=== PATIENT | female | born 1965 | race Asian ===

== ENCOUNTER 2016-07-31 19:04 | Emergency (ER) | payer OTHER ==
[2016-07-31 19:15] VITALS: BP 116/73; PULSE 90; TEMP 98.1; BMI 29.2
--- NOTE | 2016-07-31 19:29 | PDOC ---
History of Present Illness - General History Source: Patient Exam Limitations: No Limitations - History of Present Illness Initial Comments: 07/31/16 19:29 The patient is a 51 year old female presenting with her , with a significant past medical history of diabetes, who presents to the emergency department with headache, lightheadedness, blurry vision and nausea onset today. She states that she was seeing an orthopedic today regarding her right knee, for which she has been having pain for the last 3 months. Upon being checked by the physician her symptoms began. She describes her headache as ranging from mild to moderate, without radiation or modifying factors. She reports a subjective fever for the last couple of days. She states that her glucose levels usually run high, roughly 190. She notes that the last time she ate was this afternoon. She denies any recent travel. The patient denies chest pain and shortness of breath. Denies abdominal pain, chills, vomit, diarrhea and constipation. Denies dysuria, frequency, urgency and hematuria. Allergies: Penicillin Past surgical history: Skin Graft Social history: No alcohol, tobacco or drug use reported <Raz Clayton - Last Filed: 07/31/16 20:29> <Amanda Morris - Last Filed: 08/01/16 00:29> - General Chief Complaint: Lightheaded Stated Complaint: DIZZY Time Seen by Provider: 07/31/16 19:15 Past History <Raz Clayton - Last Filed: 07/31/16 20:29> - Past Medical History Anemia: Yes Asthma: No Cancer: No Cardiac Disorders: No CVA: No COPD: No CHF: No Dementia: No Diabetes: Yes GI Disorders: No Disorders: Yes (FREQUENCY) HTN: No Hypercholesterolemia: No Liver Disease: Yes (FATTY liver) Seizures: No Thyroid Disease: No Other medical history: RT KNEE PAIN - Surgical History Abdominal Surgery: No Appendectomy: No Cardiac Surgery: No Cholecystectomy: No Lung Surgery: No Neurologic Surgery: No Orthopedic Surgery: No - Reproductive History (#): 6 Para: 6 Cervical CA: No Dysfunctional Uterine Bleeding: No Ectopic : No Endometrial CA: No Polycystic Ovaries: No Tubal Ligation: No - Psycho/Social/Smoking Cessation Hx Anxiety: No Suicidal Ideation: No Smoking History: Never smoked Have you smoked in the past 12 months: No Hx Alcohol Use: No Drug/Substance Use Hx: No Substance Use Type: None Hx Substance Use Treatment: No <Amanda Morris - Last Filed: 08/01/16 00:29> - Past Medical History Allergies/Adverse Reactions: Allergies Allergy/AdvReac Type Severity Reaction Status Date / Time Penicillins Allergy Mild Verified 04/23/15 11:20 Home Medications: Ambulatory Orders Metformin HCl [Metformin HCl ER] 1,000 mg PO BID 12/20/14 Meclizine HCl [Antivert -] 25 mg PO TID PRN #20 tablet 07/31/16 Polyethylene Glycol 3350 [Miralax (For Bowel Prep) -] 17 gm PO DAILY #1 bottle 07/31/16 Review of Systems - Review of Systems Able to Perform ROS?: Yes Comments:: 07/31/16 19:29 GENERAL/CONSTITUTIONAL: +Fever. No chills. No weakness. HEAD, EYES, EARS, NOSE AND THROAT: +Blurry vision. No ear pain or discharge. No sore throat. CARDIOVASCULAR: No chest pain or shortness of breath RESPIRATORY: No cough, wheezing, or hemoptysis. GASTROINTESTINAL: +Nausea. No vomiting, diarrhea or constipation. GENITOURINARY: No dysuria, frequency, or change in urination. MUSCULOSKELETAL: No joint or muscle swelling or pain. No neck or back pain. SKIN: No rash NEUROLOGIC: +Headache and dizziness. No loss of consciousness, or change in strength/sensation. ENDOCRINE: No increased thirst. No abnormal weight change HEMATOLOGIC/LYMPHATIC: No anemia, easy bleeding, or history of blood clots. ALLERGIC/IMMUNOLOGIC: No hives or skin allergy. <Raz Clayton - Last Filed: 07/31/16 20:29> *Physical Exam - Vital Signs Last Vital Signs Temp Pulse Resp BP Pulse Ox 98.1 F 90 20 116/73 100 07/31/16 19:13 07/31/16 19:13 07/31/16 19:13 07/31/16 19:13 07/31/16 19:13 - Physical Exam Comments: 07/31/16 19:29 GENERAL: The patient is awake, alert, and fully oriented, in no acute distress. HEAD: Normal with no signs of trauma. EYES: Pupils equal, round and reactive to light, extraocular movements intact, sclera anicteric, conjunctiva clear with no pallor. ENT: Ears normal, nares patent, oropharynx clear without exudates. Dry mucous membranes. NECK: Normal range of motion, supple without lymphadenopathy, JVD, or masses. Tenderness of the bilateral paraspinal muscles of the neck, right greater than left. LUNGS: Breath sounds equal, clear to auscultation bilaterally. No wheeze/ crackles. HEART: Regular rate and rhythm, normal S1 and S2 without murmur or rub. ABDOMEN: Soft/nontender/nondistended. BS wnl. No guarding or rebound. No palpable masses. No hepatosplenomegaly. EXTREMITIES: Normal range of motion, no edema. No clubbing or cyanosis. No cords , erythema, or tenderness. NEUROLOGICAL: Cranial nerves II through XII grossly intact. Normal speech, normal gait. No pronator drift and moving all 4 extremities equally. PSYCH: Normal mood, normal affect. SKIN: Warm, Dry, normal turgor, no rashes or lesions noted. <Raz Clayton - Last Filed: 07/31/16 20:29> - Vital Signs Last Vital Signs Temp Pulse Resp BP Pulse Ox 98.1 F 90 20 116/73 100 07/31/16 19:13 07/31/16 19:13 07/31/16 19:13 07/31/16 19:13 07/31/16 19:13 <Amanda Morris - Last Filed: 08/01/16 00:29> ED Treatment Course - LABORATORY CBC & Chemistry Diagram: 07/31/16 20:05 07/31/16 20:05 <Raz Clayton - Last Filed: 07/31/16 20:29> - LABORATORY CBC & Chemistry Diagram: 07/31/16 20:05 07/31/16 20:05 <Amanda Morris - Last Filed: 08/01/16 00:29> Medical Decision Making - Medical Decision Making Documentation has been prepared under my direction and personally reviewed by me in its entirety. I attest that this documented accurately reflects all work, treatment, procedures and medical decision making performed by me. As noted above, this 51-year-old woman with a history of hypertension/type 2 diabetes presents with a history of lightheadedness/head spinning sensation that began while she was awaiting orthopedic evaluation. Patient was referred here; on presentation she is awake and alert with persistent lightheadedness. Of note, the patient has had a few day history of subjective fever/body aches/ upper respiratory symptoms. She also has mild nausea currently. No history of vertigo or labyrinthitis. She has not had any vomiting/diarrhea or other fluid losses. Exam, as noted above. There is no evidence of acute focal neurologic deficit. She appears somewhat clinically dehydrated. CBC and chemistry profile as well as cardiac enzymes evaluated Zofran 4 mg IV given. 1 L normal saline administered intravenously. Toradol 30 mg IV given for patient's headache and body aches. Laboratory values are as essentially normal with no elevation of white blood cell count; her random glucose is normal at 118; no other significant abnormalities of electrolytes are seen. Cardiac enzymes are not elevated Patient is feeling somewhat better after IV fluids and IV Toradol however still has some spinning sensation, which was particularly bothersome when she went to the bathroom to provide a urine sample. Patient given meclizine 50 mg by mouth. Patient reports resolution of her head spinning sensation. She feels no further nausea either. In retrospect, the patient states that she has been having intermittent lightheadedness/vertigo for the last 4 days during the time of her recent febrile illness. Patient will be discharged with prescription for meclizine 25 mg up to 3 times a day as needed for vertigo. She also asked for medication for occasional constipation and will be given a prescription for MiraLAX 17 g daily. Patient has been advised to follow-up with her doctor within the next 5-7 days. She should return to the emergency room if she has severe vertigo or develops persistent nausea/vomiting. <Amanda Morris - Last Filed: 08/01/16 00:29> *DC/Admit/Observation/Transfer - Attestations Scribe Attestion: 07/31/16 19:29 Documentation prepared by Raz Clayton, acting as medical pathologist for Amanda Morris MD. <Raz Clayton - Last Filed: 07/31/16 20:29> <Amanda Morris - Last Filed: 08/01/16 00:29> Diagnosis at time of Disposition: Labyrinthitis Qualifiers: Laterality: unspecified laterality Qualified Code(s): H83.09 - Labyrinthitis, unspecified ear - Discharge Dispostion Disposition: HOME Condition at time of disposition: Stable - Prescriptions Prescriptions: Meclizine HCl [Antivert -] 25 mg PO TID PRN #20 tablet PRN Reason: Vertigo Polyethylene Glycol 3350 [Miralax (For Bowel Prep) -] 17 gm PO DAILY #1 bottle - Referrals Referrals: STAFF,NOT ON [Primary Care Provider] - - Patient Instructions Printed Discharge Instructions: DI for Vertigo Additional Instructions: rest, drink plenty of fluids Meclizine 25mg up to 3 times a day for spinning sensation Miralax one capful daily take all your other medications as prescribed return to ER if you have severe dizziness or pain followup with your doctor within 5 days
[2016-07-31] MEDS ORDERED: SODIUM CHLORIDE 1,000 ML IV STA (19:42)
[2016-07-31] MEDS ORDERED: ONDANSETRON 4 MG/2 ML VIAL IVPUSH ONE (19:43)
[2016-07-31] MEDS ORDERED: ONDANSETRON 4 MG/2 ML VIAL ONE (20:16)
[2016-07-31 20:20] LABS: BASOPHIL 0.2 % (0-2.0); MCH 25.6 pg (25.7-33.7); MEAN PLT VOLUME 9.9 fl (7.5-11.1); NEUTROPHILS 67.5 % (42.8-82.8); PLATELET COUNT 247 K/MM3 (134-434); RDW 13.1 % (11.6-15.6); WHITE BLOOD COUNT 8.6 K/mm3 (4.0-10.0)
[2016-07-31 20:35] LABS: ALBUMIN 3.7 g/dl (3.5-5.0); ALK PHOS 94 U/L (32-92); ANION GAP 9 (8-16); CALCIUM 9.1 mg/dl (8.4-10.2); CO2 27 mmol/L (22-28); CPK(DFH) 48 IU/L (26-140); CREATININE 0.7 mg/dl (0.6-1.3); GLUCOSE,RANDOM 118 mg/dl (74-106); SGOT/AST 19 U/L (10-42); SGPT/ALT 19 U/L (10-40); TOT PROT 7.2 g/dl (6.4-8.3)
[2016-07-31 20:50] LABS: BILIRUBIN,TOTAL < 0.3 mg/dl (0.2-1.0)
[2016-07-31 20:51] LABS: TROPONIN I (DFP) < 0.03 ng/ml (0.03-0.50)
[2016-07-31] MEDS ORDERED: KETOROLAC TROMETHAMINE 30 MG/1 ML VIAL IVPUSH ONE (20:59)
[2016-07-31] MEDS ORDERED: KETOROLAC TROMETHAMINE 30 MG/1 ML VIAL ONE (21:01)
[2016-07-31] MEDS ORDERED: MECLIZINE HCL 25 MG TABLET (FP) PO ONE (21:37)
[2016-07-31] MEDS ORDERED: MECLIZINE HCL 25 MG TABLET (FP) ONE (21:49)
[2016-07-31 23:01] LABS: PH,URINE 5.5 (4.5-8); URINE APPEARANCE Clear; URINE BILIRUBIN Negative (NEGATIVE); URINE BLOOD Negative (NEGATIVE); URINE GLUCOSE (UA) Negative (NEGATIVE); URINE KETONE Negative (NEGATIVE); URINE LEUK ESTERASE Negative (NEGATIVE); URINE NITRITE Negative (NEGATIVE); URINE PROTEIN Negative (NEGATIVE); URINE UROBILINOGEN 0.2 E.U/dl (0.2-1.0)
[2016-07-31 23:04] LABS: URINE COLOR YELLOW
== END 2016-07-31 23:10 | disposition home or self-care (01) ==
LOC: FER 19:04
PROC: 3E0333Z Introduction of Anti-inflammatory into Peripheral Vein, Percutaneous Approach (ICD-10-PCS; principal; 2016-07-31)
PROC: 3E033GC Introduction of Other Therapeutic Substance into Peripheral Vein, Percutaneous Approach (ICD-10-PCS; 2016-07-31)
PROC: 3E0337Z Introduction of Electrolytic and Water Balance Substance into Peripheral Vein, Percutaneous Approach (ICD-10-PCS; 2016-07-31)
DX: H83.09 Labyrinthitis, unspecified ear (principal); E11.9 Type 2 diabetes mellitus without complications; K76.0 Fatty (change of) liver, not elsewhere classified; M25.561 Pain in right knee; R35.0 Frequency of micturition; D64.9 Anemia, unspecified
CPT/HCPCS: 36415; 80053; 81003; 82550; 84484; 85025; 99283-25

== ENCOUNTER 2018-12-19 12:32 | Emergency (ER) | payer OTHER ==
[2018-12-19 12:38] VITALS: TEMP 97.5; BMI 32.2
[2018-12-19] MEDS ORDERED: MAG HYDROX/AL HYDROX/SIMETH 30 ML UNIT-DOSE CUP PO ONE (13:36)
[2018-12-19] MEDS ORDERED: LIDOCAINE VISCOUS 2% ORAL/TOP 20 ML UNIT-DOSE CUP MM ONE (13:36)
--- NOTE | 2018-12-19 13:40 | PDOC ---
History of Present Illness - General Chief Complaint: Pain Stated Complaint: NECK PAIN Time Seen by Provider: 12/19/18 13:04 History Source: Patient, Family (daughter) Exam Limitations: Language Barrier (speaks some [place], prefers [place]) - History of Present Illness Initial Comments: 53 yo F PMH GERD, arthritis, p/w R sided throat burning and itching. Began initially a week ago; patient had some mist medication from her ENT that she used, and this sensation resolved after 3 days. Last night, the sensation came back, except more intense. The spray was tried at that time and this morning, and did not help. Patient also endorses some L middle abdominal pain last night "felt like something was stuck", but this is no longer present. Also says that she has had some issues with intermittent L sided nasal hemianopsia. Had an MRI today, which was normal. Also says she has had some intermittent sharp L sided chest pain, which she has been told could be due to fibromyalgia. ROS Chronic constipation Feels weak Denies CP, SOB, N/V, diarrhea, fevers/chills, PUGA. 12/19/18 13:32 Past History - Past Medical History Allergies/Adverse Reactions: Allergies Allergy/AdvReac Type Severity Reaction Status Date / Time Penicillins Allergy Mild Verified 12/19/18 12:38 Home Medications: Ambulatory Orders metFORMIN HCL [Metformin ER Osmotic] 500 mg PO BID 12/20/14 Calcium Carbonate/Simethicone [Maalox Advanced Tab Chew] 1 each PO BID PRN #14 tab.chew 12/19/18 Omeprazole 20 mg PO BID 12/19/18 Ranitidine HCl [Zantac] 150 mg PO DAILY #14 tablet 12/19/18 Anemia: Yes Asthma: No Cancer: No Cardiac Disorders: No CVA: No COPD: No CHF: No Dementia: No Diabetes: Yes GI Disorders: No Disorders: Yes (FREQUENCY) HTN: No Hypercholesterolemia: No Liver Disease: Yes (FATTY liver) Seizures: No Thyroid Disease: No - Surgical History Abdominal Surgery: No Appendectomy: No Cardiac Surgery: No Cholecystectomy: No Lung Surgery: No Neurologic Surgery: No Orthopedic Surgery: No - Reproductive History (#): 6 Para: 6 Cervical CA: No Dysfunctional Uterine Bleeding: No Ectopic : No Endometrial CA: No Polycystic Ovaries: No Tubal Ligation: No - Suicide/Smoking/Psychosocial Hx Smoking History: Never smoked Have you smoked in the past 12 months: No Hx Alcohol Use: No Drug/Substance Use Hx: No Substance Use Type: None Hx Substance Use Treatment: No Review of Systems - Review of Systems Constitutional: Yes: Weakness. No: Chills, Fever HEENTM: Yes: Recent change in vision (L nasal hemianopsia, intermittent. MRI today negative), Throat Pain (R sided, burning, itching). No: Eye Pain Respiratory: No: Shortness of Breath, Stridor, Wheezing Cardiac (ROS): No: Chest Pain, Lightheadedness, Syncope ABD/GI: Yes: Constipated (chronic). No: Diarrhea Neurological: No: Headache, Numbness, Tingling, Weakness *Physical Exam - Vital Signs Last Vital Signs Temp Pulse Resp BP Pulse Ox 97.5 F L 75 18 106/64 100 12/19/18 12:35 12/19/18 12:35 12/19/18 12:35 12/19/18 12:35 12/19/18 12:35 - Physical Exam General Appearance: Yes: Nourished, Appropriately Dressed HEENT: positive: EOMI, JULIETH, Normal ENT Inspection, Normal Voice, Symmetrical, TMs Normal, Pharynx Normal, Hearing Grossly Normal. negative: Pharyngeal Erythema, Tonsillar Erythema, Nasal Congestion Neck: positive: Trachea midline, Normal Thyroid, Supple, Lymphadenopathy (R) ( minor cervical, slightly tender). negative: Stridor Respiratory/Chest: positive: Lungs Clear, Normal Breath Sounds. negative: Respiratory Distress, Accessory Muscle Use Cardiovascular: positive: Regular Rhythm, Regular Rate Gastrointestinal/Abdominal: positive: Normal Bowel Sounds, Soft. negative: Tender Musculoskeletal: positive: Normal Inspection. 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 Will get Xray soft tissues to r/o retropharyngeal abscess, give Pepcid for symptom management. CBC CMP CXR PA L for workup. Give oral lidocaine and Mylanta for symptom management. 12/19/18 14:07 Patient feeling better. Stated that her daughter is leaving the country tonight at around 1830, so she absolutely has to be out of the hospital by 1800. Will continue workup and follow up imaging. Explained to patient the risks of signing out against medical advice, including increased throat pain, disability , and , and she said that she would sign out AMA if it becomes to late. She is awake, alert, oriented, and competent to make this decision. 12/19/18 15:09 Patient reassessed, continues to be pain free. 12/19/18 15:50 CXR and Xray soft tissues reviewed. Showed moderate cardiomegaly with bibasilar atelectasis, but no abscess or bony abnormalities. Plan to d/c home with outpatient follow-up. 12/19/18 16:35 *DC/Admit/Observation/Transfer Diagnosis at time of Disposition: GERD (gastroesophageal reflux disease) Qualifiers: Esophagitis presence: esophagitis presence not specified Qualified Code(s): K21.9 - Gastro-esophageal reflux disease without esophagitis - Discharge Dispostion Disposition: HOME Condition at time of disposition: Improved Decision to Admit order: No - Prescriptions Prescriptions: Calcium Carbonate/Simethicone [Maalox Advanced Tab Chew] 1 each PO BID PRN #14 tab.chew PRN Reason: Pain Ranitidine HCl [Zantac] 150 mg PO DAILY #14 tablet - Referrals Referrals: Wm Dorsey MD [Primary Care Provider] - Diamante Cronin MD [Staff Physician] - - Patient Instructions Printed Discharge Instructions: DI for Gastroesophageal Reflux Disease (GERD) Additional Instructions: Take your Zantac 150mg daily for the next two weeks. Take your Maalox as needed. Please follow up with Dr. Cronin in 3 days to get an outpatient scope. Please follow up with your ENT and primary care doctors. You were found to have a moderately enlarged heart, please ensure that your primary care physician has this followed up. Return to the ED if you develop worsening throat pain, fevers and chills, or vomiting. - Post Discharge Activity
[2018-12-19] MEDS ORDERED: FAMOTIDINE 20 MG/50 ML IVPB 20 MG/50 ML MG IVPB ONE (14:08)
[2018-12-19] MEDS ORDERED: FAMOTIDINE 20 MG/50 ML IVPB 0 MG/0 ML MG IVPB ONE (14:15)
[2018-12-19] MEDS ORDERED: MAG HYDROX/AL HYDROX/SIMETH 30 ML UNIT-DOSE CUP ONE (14:15)
[2018-12-19] MEDS ORDERED: RANITIDINE HCL 150 MG TABLET (FP) PO ONE (14:25)
[2018-12-19] MEDS ORDERED: RANITIDINE HCL 150 MG TABLET (FP) ONE (14:29)
[2018-12-19] MEDS ORDERED: ALPRAZolam 0.25 MG TABLET PO ONE (14:40)
[2018-12-19] MEDS ORDERED: ALPRAZolam 0.25 MG TABLET ONE (14:47)
--- NOTE | 2018-12-19 15:01 | PDOC ---
Documentation entered by Carmelita Cardenas SCRIBE, acting as scribe for Imelda Duff DO. Imelda Duff DO: This documentation has been prepared by the Ronald perez Nirvannie, SCRIBE, under my direction and personally reviewed by me in its entirety. I confirm that the documentation accurately reflects all work, treatment, procedures, and medical decision making performed by me. Attending Attestation - Resident Resident Name: MascorroLauren little - ED Attending Attestation I have performed the following: I have examined & evaluated the patient, The case was reviewed & discussed with the resident, I agree w/resident's findings & plan - HPI HPI: 12/19/18 13:42 The patient is a 53 year old female, with a significant past medical history of GERD and DM, who presents to the emergency department with, 2 days of shortness of breath and neck pain. As per patient, she saw her ENT in [place] earlier this week at which time she was placed on Azithromycin for her GERD. She notes her medications finished 2 days ago onsetting her shortness or breath and neck pain with associated burning sensation in her esophagus and sour taste in the back of her mouth. She denies recent fevers, chills, headache or dizziness. She denies recent diarrhea or constipation. She denies recent dysuria, frequency, urgency or hematuria. She denies recent chest pain or palpitations. Allergies: Penicillin Past surgical history: Skin Graft Social history: Nonsmoker. Denies EtOH use and recreational drug use. Primary Care Physician: Dr. Dorsey - Physicial Exam PE: 12/19/18 13:42 Constitutional: Awake, alert, oriented. No acute distress. Head: Normocephalic. Atraumatic Eyes: PERRL. EOMI. Conjunctivae are not pale. ENT: Submandibular soft. Mucous membranes are moist and intact. Posterior pharynx without exudates or erythema. Uvula midline. Neck: Supple. Full ROM. No lymphadenopathy. Cardiovascular: Regular rate. Regular rhythm. S1, S2 regular. Distal pulses are 2+ and symmetric. Pulmonary/Chest: No evidence of respiratory distress. Clear to auscultation bilaterally No wheezing, rales or rhonchi. Abdominal: Soft and non-distended. There is no tenderness. No rebound, guarding or rigidity. No organomegaly. No palpable masses. Good bowel sounds. Back: No CVA tenderness. Musculoskeletal: No edema. No cyanosis. No clubbing. Full range of motion in all extremities. No calf tenderness. Radial/pedal pulses are intact and 2+ bilaterally Skin: Skin is warm and dry. No petechiae. No purpura. Neurological: Alert and oriented to person, place, and time. Cranial nerves II -XII are grossly intact. Normal speech. Strength is grossly symmetric. No sensory deficits. Psychiatric: Good eye contact. Normal interaction, affect and behavior. - Medical Decision Making 12/19/18 14:42 a/p: 53yo female with sore throat and R neck pain -pt saw ent and was treated with azithromycin this week for "redness" -pt states finished the azithromycin on thursday and since finishing has had worsening pain to the R neck -pt speaking in full sentences -pt without stridor or wheezing -swallowing without difficulty -pt appears anxious -post pharynx clear -will obtain xray soft tissue neck and cxr -hx of gerd and ent told her she has gerd -will treat with oral meds and reassess 12/19/18 16:33 cxr shows mild cardiomegaly neck xray shows djd to c5-6, stable for dc to home ent and gi follow up no retropharyngeal abscess feels better after gi meds Heart Score/ECG Review - ECG Intrepretation Comment:: 12/19/18 15:01 sinus at 61, nl axis, nl interval, no acute st/t wave findings
[2018-12-19 17:01] VITALS: BP 110/72; PULSE 67
--- NOTE | 2018-12-20 11:25 | EKG ---
Test Reason : Blood Pressure : / mmHG Vent. Rate : 061 BPM Atrial Rate : 061 BPM P-R Int : 142 ms QRS Dur : 074 ms QT Int : 422 ms P-R-T Axes : 043 009 025 degrees QTc Int : 424 ms NORMAL SINUS RHYTHM CANNOT RULE OUT ANTERIOR INFARCT , AGE UNDETERMINED ABNORMAL ECG WHEN COMPARED WITH ECG OF 19-DEC-2014 13:54, NO SIGNIFICANT CHANGE WAS FOUND Confirmed by JESSICA DOBBS MD ([id number]) on 12/20/2018 11:25:03 AM Referred By: Confirmed By:JESSICA DOBBS MD
== END 2018-12-19 17:01 | disposition home or self-care (01) ==
LOC: JER 12:32
DX: K21.9 Gastro-esophageal reflux disease without esophagitis (principal); K76.0 Fatty (change of) liver, not elsewhere classified
CPT/HCPCS: 70360-TC-FY; 71046-TC-FY; 93005; 93010; 99282-25

== ENCOUNTER 2020-12-07 10:05 | Day surgery (SDC) | payer OTHER ==
[2020-12-03 16:06] VITALS: BMI 31.0
[2020-12-07] MEDS ORDERED: BUPIVACAINE HCL/PF 0.25% (2.5MG/ML) 10 ML VIAL ONE ×2 (10:30→11:06)
[2020-12-07] MEDS ORDERED: MIDAZOLAM HCL 2 MG/2 ML SINGLE DOSE VIAL ONE (11:40)
[2020-12-07] MEDS ORDERED: DESFLURANE GAS 240 ML BOTTLE IH ONE (12:31)
[2020-12-07] MEDS ORDERED: oxyCODONE HCL 5 MG TABLET PO PRN ×2 (12:55)
[2020-12-07] MEDS ORDERED: PROMETHAZINE HCL 25 MG/1 ML VIAL IVPB PRN (12:55)
[2020-12-07] MEDS ORDERED: ONDANSETRON 4 MG/2 ML VIAL IVPUSH PRN (12:55)
[2020-12-07 13:23] VITALS: TEMP 97.5
[2020-12-07 15:53] VITALS: BP 131/78; PULSE 80
== END 2020-12-07 15:50 | disposition home or self-care (01) ==
LOC: FASU 10:05
PROVIDERS: ATTEND Orthopaedic Surgery Sports Medicine
PROC: 0SBC4ZZ Excision of Right Knee Joint, Percutaneous Endoscopic Approach (ICD-10-PCS; 2020-12-07)
PROC: 0SQC4ZZ Repair Right Knee Joint, Percutaneous Endoscopic Approach (ICD-10-PCS; 2020-12-07)
PROC: 0SBC4ZZ Excision of Right Knee Joint, Percutaneous Endoscopic Approach (ICD-10-PCS; principal; 2020-12-07 12:13)
PROC: 0SBC4ZZ Excision of Right Knee Joint, Percutaneous Endoscopic Approach (ICD-10-PCS; 2020-12-07 12:13)
DX: S83.241A Other tear of medial meniscus, current injury, right knee, initial encounter (principal); S83.281A Other tear of lateral meniscus, current injury, right knee, initial encounter; M22.41 Chondromalacia patellae, right knee; M65.9 Synovitis and tenosynovitis, unspecified; X58.XXXA Exposure to other specified factors, initial encounter; Y93.9 Activity, unspecified; Y92.9 Unspecified place or not applicable
CPT/HCPCS: 29880; G0289; 82962; 88304-TC; 94760

== ENCOUNTER 2021-08-26 08:09 | Inpatient (IN) | payer OTHER ==
[2021-08-22 15:36] VITALS: BMI 31.0
[~2021-08-26 08:09] MED LIST: BUPIVICAINE 0.25%/MORPH PF/KETOROLAC - 51ML DISP.SYRINGE IA ONE; VANCOMYCIN 1,000 MG VIAL (RESTRICTED TO ID ONLY) IVPB ONE
[2021-08-26] MEDS ORDERED: MIDAZOLAM HCL 2 MG/2 ML SINGLE DOSE VIAL ONE ×3 (08:30→12:54)
[2021-08-26] MEDS ORDERED: BUPIVACAINE LIPOSOME/PF (EXPAREL) 266 MG/20 ML VIAL ONE (08:30)
[2021-08-26] MEDS ORDERED: SODIUM CHLORIDE 0.9% P/F 10 ML VIAL IJ ONE (08:30)
[2021-08-26] MEDS ORDERED: BUPIVACAINE HCL 50 ML ONE ×2 (08:30→10:19)
[2021-08-26] MEDS ORDERED: VANCOMYCIN 1,000 MG VIAL (RESTRICTED TO ID ONLY) ONE ×2 (10:27→11:22)
[2021-08-26] MEDS ORDERED: TRANEXAMIC ACID 1000 MG/10 ML VIAL ONE ×3 (10:27→13:37)
[2021-08-26] MEDS ORDERED: PROPOFOL 20 ML ONE ×2 (10:42)
[2021-08-26] MEDS ORDERED: SUCCINYLCHOLINE CHLORIDE 200 MG/10 ML SYRINGE ONE (10:43)
[2021-08-26] MEDS ORDERED: DEXAMETHASONE SOD PHOSPHATE 4 MG/1 ML VIAL ONE (10:52)
[2021-08-26] MEDS ORDERED: ceFAZolin SODIUM 1 GM VIAL ONE ×2 (10:52→17:58)
[2021-08-26] MEDS ORDERED: ONDANSETRON 4 MG/2 ML VIAL ONE (10:52)
[2021-08-26] MEDS ORDERED: BUPIVICAINE 0.25%/MORPH PF/KETOROLAC - 51ML DISP.SYRINGE IA ONE ×2 (12:24→13:18)
[2021-08-26] MEDS ORDERED: VANCOMYCIN 1,000 MG VIAL (RESTRICTED TO ID ONLY) IVPB ONE (12:57)
[2021-08-26] MEDS ORDERED: ONDANSETRON 4 MG/2 ML VIAL IVPUSH PRN ×2 (13:31→14:40)
[2021-08-26] MEDS ORDERED: MAG HYDROX/AL HYDROX/SIMETH 30 ML UNIT-DOSE CUP PO PRN (13:31)
[2021-08-26] MEDS ORDERED: LACTATED RINGERS SOLUTION 1,000 ML IV SCH (13:45)
[2021-08-26] MEDS ORDERED: oxyCODONE HCL 5 MG TABLET PO PRN (14:40)
[2021-08-26] MEDS ORDERED: PROMETHAZINE HCL 25 MG/1 ML VIAL IVPUSH PRN (14:40)
[2021-08-26] MEDS: ACETAMINOPHEN 500 MG TABLET (FP) PO SCH ×5 (15:30→23:35)
[2021-08-26] MEDS ORDERED: DEXTROSE 5%-WATER - 50 ML IVPB ONE (17:59)
[2021-08-26] MEDS: CEFAZOLIN 2 GM in DEXTROSE 5%-WATER - 50 ML IVPB SCH (18:04)
[2021-08-26] MEDS: oxyCODONE HCL 5 MG TABLET PO PRN ×2 (19:30→23:36)
[2021-08-26] MEDS: GABAPENTIN 300 MG CAPSULE PO SCH (21:49)
[2021-08-26] MEDS: oxyCODONE HCL 10 MG SUSTAINED ACTING TABLET PO SCH (21:49)
[2021-08-26] MEDS: SENNOSIDES/DOCUSATE COMBO (SENNA PLUS) TABLET (UD) PO SCH (21:49)
[2021-08-27] MEDS: CEFAZOLIN 2 GM in DEXTROSE 5%-WATER - 50 ML IVPB SCH ×2 (03:00→11:09)
[2021-08-27] MEDS ORDERED: DEXTROSE 5%-WATER - 50 ML IVPB ONE ×2 (03:10→11:02)
[2021-08-27] MEDS ORDERED: ceFAZolin SODIUM 1 GM VIAL ONE ×2 (03:10→11:01)
[2021-08-27] MEDS: oxyCODONE HCL 5 MG TABLET PO PRN ×3 (05:19→16:40)
[2021-08-27 07:47] LABS: CALCIUM 8.5 mg/dl (8.5-10); CREATININE 0.6 mg/dl (0.55-1.3)
[2021-08-27] MEDS: ACETAMINOPHEN 500 MG TABLET (FP) PO SCH ×2 (08:26→16:39)
[2021-08-27] MEDS: ASPIRIN 325 MG TABLET PO SCH ×2 (09:18→21:04)
[2021-08-27] MEDS: PANTOPRAZOLE 40 MG TABLET PO SCH (09:18)
[2021-08-27] MEDS: GABAPENTIN 300 MG CAPSULE PO SCH ×2 (09:18→21:05)
[2021-08-27] MEDS: oxyCODONE HCL 10 MG SUSTAINED ACTING TABLET PO SCH ×2 (09:18→22:29)
[2021-08-27] MEDS: SENNOSIDES/DOCUSATE COMBO (SENNA PLUS) TABLET (UD) PO SCH ×2 (09:18→21:04)
[2021-08-27] MEDS: MULTIVITAMINS (DAILY MVI) TABLET (FP) PO SCH (09:18)
[2021-08-27 10:23] LABS: HEMATOCRIT 30.1 % (32.4-45.2); HEMOGLOBIN 10.1 GM/dL (10.7-15.3); MCH 26.3 pg (25.7-33.7); MCHC 33.5 g/dl (32.0-36.0); MEAN CELL VOLUME 78.6 fl (80-96); MEAN PLT VOLUME 9.6 fl (7.5-11.1); PLATELET COUNT 194 10^3/uL (134-434); RBC 3.83 M/mm3 (3.60-5.2); RDW 14.9 % (11.6-15.6); WHITE BLOOD COUNT 9.5 K/mm3 (4.0-10.0)
[2021-08-27] MEDS ORDERED: morphine CARPU-JECT 2 MG/1 ML DISP.SYRIN IVPUSH ONE (21:03)
[2021-08-28] MEDS: ACETAMINOPHEN 500 MG TABLET (FP) PO SCH ×4 (01:04→23:44)
[2021-08-28] MEDS: oxyCODONE HCL 5 MG TABLET PO PRN ×2 (03:36→06:25)
[2021-08-28 09:45] LABS: HEMATOCRIT 28.3 % (32.4-45.2); HEMOGLOBIN 9.4 GM/dL (10.7-15.3); MCH 26.1 pg (25.7-33.7); MCHC 33.3 g/dl (32.0-36.0); MEAN CELL VOLUME 78.3 fl (80-96); MEAN PLT VOLUME 9.8 fl (7.5-11.1); PLATELET COUNT 169 10^3/uL (134-434); RBC 3.62 M/mm3 (3.60-5.2)
[2021-08-28] MEDS: ASPIRIN 325 MG TABLET PO SCH ×2 (09:56→21:03)
[2021-08-28] MEDS: PANTOPRAZOLE 40 MG TABLET PO SCH (09:56)
[2021-08-28] MEDS: GABAPENTIN 300 MG CAPSULE PO SCH ×2 (09:56→21:05)
[2021-08-28] MEDS: SENNOSIDES/DOCUSATE COMBO (SENNA PLUS) TABLET (UD) PO SCH ×2 (09:56→21:03)
[2021-08-28] MEDS: oxyCODONE HCL 10 MG SUSTAINED ACTING TABLET PO SCH ×2 (09:57→21:03)
[2021-08-28] MEDS: MULTIVITAMINS (DAILY MVI) TABLET (FP) PO SCH (09:57)
[2021-08-28] MEDS: INSULIN SLIDING SCALE (NOVOLOG) 1 VIAL SQ SCH ×2 (16:54→21:05)
[2021-08-29] MEDS: INSULIN SLIDING SCALE (NOVOLOG) 1 VIAL SQ SCH ×2 (06:44→11:16)
[2021-08-29] MEDS: ACETAMINOPHEN 500 MG TABLET (FP) PO SCH (06:46)
[2021-08-29] MEDS: SENNOSIDES/DOCUSATE COMBO (SENNA PLUS) TABLET (UD) PO SCH (09:24)
[2021-08-29] MEDS: PANTOPRAZOLE 40 MG TABLET PO SCH (09:24)
[2021-08-29] MEDS: ASPIRIN 325 MG TABLET PO SCH (09:25)
[2021-08-29] MEDS: MULTIVITAMINS (DAILY MVI) TABLET (FP) PO SCH (09:25)
[2021-08-29] MEDS: oxyCODONE HCL 10 MG SUSTAINED ACTING TABLET PO SCH (09:25)
[2021-08-29] MEDS: GABAPENTIN 300 MG CAPSULE PO SCH (09:25)
[2021-08-29 09:41] VITALS: BP 93/53; PULSE 86; TEMP 98.4
== END 2021-08-29 13:27 | disposition home or self-care (01) | DRG 302 ==
LOC: FM/S 08:09 → EDSTATUS 10:45 → FM/S 16:08
PROVIDERS: ADMIT Orthopaedic Surgery Sports Medicine; ATTEND Nurse Practitioner Acute Care
PROC: 8E0W0CZ Robotic Assisted Procedure of Trunk Region, Open Approach (ICD-10-PCS; 2021-08-26)
PROC: 0SRC0J9 Replacement of Right Knee Joint with Synthetic Substitute, Cemented, Open Approach (ICD-10-PCS; principal; 2021-08-26 11:22)
DX: M17.11 Unilateral primary osteoarthritis, right knee (principal); K21.9 Gastro-esophageal reflux disease without esophagitis; E11.9 Type 2 diabetes mellitus without complications
CPT/HCPCS: 36415; 73560-TC-RT-FY; 80048; 82550; 82553; 82962; 84484; 85027; 88305-TC; 88311-TC; 94010; 94760; 97010-GP; 97116-GP; 97162-GP

== ENCOUNTER 2022-11-19 04:35 | Day surgery (SDC) | payer OTHER ==
[2022-11-17 11:23] VITALS: BMI 32.2
[~2022-11-19 04:35] MED LIST changes: +ACETAMINOPHEN 325 MG TABLET (FP) PO PRN; +BSS (NA/CA/MG/K) BALANCED SALT SOLUTION OPHTH SOLN 15 ML BOTTLE OD ONE; +BUPIVACAINE HCL/PF 0.75% 10 ML VIAL NR ONE; -BUPIVICAINE 0.25%/MORPH PF/KETOROLAC - 51ML DISP.SYRINGE IA ONE; +CHONDROITIN SU A/HYALUR SOD 1 KIT IO ONE; +EPINEPHrine/PF 1 MG/1 ML (1:1,000) AMPULE SQ ONE; +LIDOCAINE HCL 1% PRESERVATIVE FREE - 30ML VIAL IO ONE; +LIDOCAINE HCL/PF 2% SDV 5ML VIAL INF ONE; +POVIDONE-IODINE 5% OPHTHALMIC PREP 30 ML SOLUTION OD ONE; -VANCOMYCIN 1,000 MG VIAL (RESTRICTED TO ID ONLY) IVPB ONE
[2022-11-19] MEDS ORDERED: EPINEPHrine/PF 1 MG/1 ML (1:1,000) AMPULE ONE (07:21)
[2022-11-19] MEDS ORDERED: BUPIVACAINE HCL/PF 0.75% 10 ML VIAL ONE (07:21)
[2022-11-19] MEDS ORDERED: BSS (NA/CA/MG/K) BALANCED SALT SOLUTION OPHTH SOLN 15 ML BOTTLE ONE (07:22)
[2022-11-19] MEDS ORDERED: POVIDONE-IODINE 5% OPHTHALMIC PREP 30 ML SOLUTION ONE (07:22)
[2022-11-19] MEDS ORDERED: LIDOCAINE HCL/PF 1% SDV 5ML VIAL ONE (07:22)
[2022-11-19] MEDS ORDERED: LIDOCAINE HCL/PF 2% SDV 5ML VIAL ONE (07:23)
[2022-11-19] MEDS ORDERED: PHENYLEPHRINE 2.5% OPTHALMIC DROP 2ML BOTTLE ONE (09:06)
[2022-11-19] MEDS ORDERED: KETOROLAC TROMETHAMINE 0.5% EYE DROP 1 DROP DROPS ONE (09:06)
[2022-11-19] MEDS ORDERED: OFLOXACIN 0.3% OPHTHALMIC SOLUTION 5 ML BOTTLE ONE (09:07)
[2022-11-19] MEDS ORDERED: TROPICAMIDE 1% OPHTH SOLN 15 ML BOTTLE ONE (09:07)
[2022-11-19] MEDS ORDERED: CYCLOPENTOLATE HCL 1% OPHTH SOLN 2 ML BOTTLE ONE (09:07)
[2022-11-19 12:38] VITALS: TEMP 97.8
[2022-11-19] MEDS: OFLOXACIN 0.3% OPHTHALMIC SOLUTION 5 ML BOTTLE OP SCH ×3 (12:50→13:00)
[2022-11-19] MEDS: CYCLOPENTOLATE HCL 1% OPHTH SOLN 2 ML BOTTLE OP SCH ×3 (12:50→13:00)
[2022-11-19] MEDS: PHENYLEPHRINE 2.5% OPHTH SOLN 15 ML BOTTLE OP SCH ×3 (12:50→13:00)
[2022-11-19] MEDS: TROPICAMIDE 1% OPHTH SOLN 15 ML BOTTLE OP SCH ×3 (12:50→13:00)
[2022-11-19] MEDS: KETOROLAC TROMETHAMINE 0.5% EYE DROP 1 DROP DROPS OP SCH ×3 (12:50→13:00)
[2022-11-19] MEDS ORDERED: MIDAZOLAM HCL 2 MG/2 ML SINGLE DOSE VIAL ONE (14:35)
[2022-11-19] MEDS ORDERED: BUPIVACAINE HCL/PF 0.75% 10 ML VIAL NR ONE (14:53)
[2022-11-19] MEDS ORDERED: LIDOCAINE HCL/PF 2% SDV 5ML VIAL INF ONE (14:53)
[2022-11-19] MEDS ORDERED: POVIDONE-IODINE 5% OPHTHALMIC PREP 30 ML SOLUTION OD ONE (14:55)
[2022-11-19] MEDS ORDERED: BSS (NA/CA/MG/K) BALANCED SALT SOLUTION OPHTH SOLN 15 ML BOTTLE OD ONE (15:04)
[2022-11-19] MEDS ORDERED: LIDOCAINE HCL 1% PRESERVATIVE FREE - 30ML VIAL IO ONE (15:05)
[2022-11-19] MEDS ORDERED: CHONDROITIN SU A/HYALUR SOD 1 KIT IO ONE (15:05)
[2022-11-19] MEDS ORDERED: EPINEPHrine/PF 1 MG/1 ML (1:1,000) AMPULE SQ ONE (15:11)
[2022-11-19 16:30] VITALS: BP 119/60; PULSE 73; RESP 18
== END 2022-11-19 16:30 | disposition home or self-care (01) ==
LOC: JASU-SURG 04:35 → FASU 04:35
PROVIDERS: ATTEND Ophthalmology
PROC: 08RJ3JZ Replacement of Right Lens with Synthetic Substitute, Percutaneous Approach (ICD-10-PCS; principal; 2022-11-19 13:30)
DX: H26.9 Unspecified cataract (principal)
CPT/HCPCS: 66984; V2632; 82962